=== PATIENT | male | born 1985 | race Caucasian/White ===

== ENCOUNTER 2019-04-02 02:12 | Emergency (ER) | payer OTHER, SELFPAY ==
[2019-04-02 02:16] VITALS: BP 129/84; PULSE 84; RESP 16; TEMP 36.6; O2SAT 99; BMI 30.8
--- NOTE | 2019-04-02 02:22 | DI.RAD.S_ITS ---
PROCEDURE: XR RIBS LT 2V INDICATIONS: sharp pains to L side ribs TECHNIQUE: 2 views of the left ribs were acquired. COMPARISON: None. FINDINGS: Surgical changes and devices: None. Bones and chest wall: No fractures or dislocations. No suspicious bony lesions. Overlying soft tissues appear unremarkable. Lungs and pleura: The visualized lung appears clear. No pleural effusions or pneumothorax are visible. IMPRESSION: No visible fractures or underlying pulmonary pathology. Dictated by: Skylar Del Valle M.D. on 04/02/2019 at 8:22 Approved by: Skylar Del Valle M.D. on 04/02/2019 at 8:24
[2019-04-02] MEDS: IBUPROFEN 400 MG TABLET 800 MG PO (02:26)
[2019-04-02] MEDS: HYDROCODONE/ACET 5/325 PREPACK 1 BOTTLE MISC (03:27)
[2019-04-02] MEDS: CYCLOBENZAPRINE 10 MG PREPACK 1 BOTTLE MISC (03:27)
[2019-04-02 03:49] VITALS: BP 127/77; PULSE 85; RESP 16; O2SAT 97
--- NOTE | 2019-04-02 06:49 | ED_ITS ---
HPI - Chest Pain General Chief Complaint: Chest Pain Stated Complaint: LEFT RIB PAIN Time Seen by Provider: 04/02/19 02:58 Source: patient Mode of arrival: ambulatory Limitations: no limitations History of Present Illness HPI narrative: 33-year-old male smoker otherwise healthy presents with a chief complaint of left posterior rib pain. 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 He has sharp and stabbing pain with motion and improvement with rest. He denies any cough or shortness of breath. MD complaint: chest pain Duration: constant Onset: during rest Pain location: left chest Severity: moderate Quality: sharp and ripping Pain radiation: none Relieving factors: rest Treatments prior to arrival chest pain: none Related Data Previous Rx's Medication Instructions Recorded cyclobenzaprine 10 mg PO TID PRN #14 tab 04/02/19 hydrocodone-acetaminophen 1 tab PO Q4-6H PRN #10 tab 04/02/19 ketorolac 10 mg PO Q6H PRN #14 tab 04/02/19 Allergies Allergy/AdvReac Type Severity Reaction Status Date / Time amoxicillin Allergy Hives Verified 04/02/19 02:21 Penicillins Allergy Verified 04/02/19 02:21 Review of Systems Constitutional Denies chills, Denies fever(s), Denies lethargy and Denies weakness Eyes Denies change in vision, Denies eye discharge, Denies irritation and Denies loss of vision ENT Ears, Nose, Mouth, and Throat: Denies change in voice, Denies neck pain and Denies sore throat Cardiovascular Reports chest pain, Denies irregular heart rhythm, Denies lightheadedness, Denies palpitations, Denies dyspnea, Denies dyspnea on exertion and Denies orthopnea Respiratory Denies cough, Denies dyspnea, Denies dyspnea on exertion and Denies wheezing Gastrointestinal Gastrointestinal: Denies abdominal pain, Denies change in bowel habits, Denies diarrhea, Denies nausea and Denies vomiting Genitourinary Denies hematuria, Denies flank pain, Denies urinary incontinence and Denies urinary urgency Musculoskeletal Denies neck pain Integumentary/Breasts Denies pruritus, Denies erythema, Denies rash and Denies wounds Neurologic Denies confusion, Denies loss of vision and Denies weakness Psychiatric Denies anxiety, Denies confusion, Denies depression, Denies homicidal ideation and Denies suicidal ideation Endocrine Denies palpitations Hematologic/Lymphatic Denies easy bruising Allergic/Immunologic Denies wheezing PFSH Social History Smoking Status: Current every day smoker Social History Smoking Status: Current every day smoker Exam Narrative Exam Narrative: GENERAL: 33-year-old male, obviously uncomfortable HEAD: Atraumatic. Normocephalic. No temporal or scalp tenderness. EYES: Pupils equal round and reactive. Extraocular motions intact. No scleral icterus. No injection or drainage. ENT: Nose without bleeding, purulent drainage or septal hematoma. Throat without erythema, tonsillar hypertrophy or exudate. Uvula midline. Airway patent. NECK: Trachea midline. No JVD or lymphadenopathy. Supple, nontender, no meningeal signs. CARDIOVASCULAR: Regular rate and rhythm without murmurs, gallops, or rubs. severe tenderness to palpation of left lateral ribs RESPIRATORY: Clear to auscultation. Breath sounds equal bilaterally. No wheezes, rales, or rhonchi. GASTROINTESTINAL: Abdomen soft, non-tender, nondistended. No hepato- splenomegaly, or palpable masses. No guarding. EXTREMITIES: No clubbing, cyanosis, or edema. No joint tenderness, effusion, or edema noted. BACK: Nontender without deformity or crepitance. No flank tenderness. NEURO: AOx3. SKIN: No rash or erythema. Initial Vital Signs Initial Vital Signs: Vital Signs Temperature 97.9 F 04/02/19 02:16 Pulse Rate 84 04/02/19 02:16 Respiratory Rate 16 04/02/19 02:16 Blood Pressure 129/84 04/02/19 02:16 Pulse Oximetry 99 04/02/19 02:16 Course Orders Ordered: ED Orders 04/02/19 02:22 XR ribs LT 2V Stat Discontinued Medications Hydrocodone Bitart/Acetaminophen (Vicodin Prepack) 1 bottle MISC SEEINSTR ONE Stop: 04/02/19 03:13 Last Admin: 04/02/19 03:27 Dose: 1 bottle Cyclobenzaprine HCl (Flexeril 10 Mg Prepack) 1 bottle MISC SEEINSTR ONE Stop: 04/02/19 03:13 Last Admin: 04/02/19 03:27 Dose: 1 bottle Ibuprofen (Advil) 800 mg PO NOW ONE Stop: 04/02/19 02:26 Last Admin: 04/02/19 02:26 Dose: 800 mg Ketorolac Tromethamine (Toradol) 60 mg IM NOW ONE Stop: 04/02/19 03:13 Last Admin: 04/02/19 03:48 Dose: Not Given Vital Signs - 8 hr 04/02/19 02:16 04/02/19 03:49 Temperature 97.9 F Pulse Rate 84 85 Respiratory Rate 16 16 Blood Pressure 129/84 127/77 Pulse Oximetry 99 97 MDM - Chest Pain Imaging Data Chest x-ray: My impression: No acute process Discharge Plan Departure Patient Disposition: Home Clinical Impression: Pain in rib Discharge Date/Time: 04/02/19 03:50 Interventions: ED Discharge Assessment Last Done: 04/02/19 03:49 Activity Restrictions/Additional Instructions: *You have been diagnosed with [left lateral rib pain with spasm of intercostals] *What to do: *Take medications as directed *Follow up with your primary care provider in 2-3 days, call for an appointment. Let them know you were seen in the Emergency Department and that we ask that you be seen in follow up *Return to ER if you should have any new, worsening or concerning symptoms Prescriptions: New cyclobenzaprine 10 mg tablet 10 mg PO TID PRN (Reason: muscle spasm) Qty: 14 RF: 0 hydrocodone-acetaminophen 5-325 mg tablet 1 tab PO Q4-6H PRN (Reason: pain) Qty: 10 RF: 0 ketorolac 10 mg tablet 10 mg PO Q6H PRN (Reason: pain) Qty: 14 RF: 0 Stand Alone Forms: Work Release Note
== END 2019-04-02 03:50 | disposition home or self-care (01) ==
PROVIDERS: Emergency Provider Emergency Medicine
DX: R07.81 Pleurodynia (principal); R07.9 Chest pain, unspecified
CPT/HCPCS: 71100; 99282; 99283

== ENCOUNTER → 2022-09-15 09:03 | Outpatient (CLI) | payer OTHER, SELFPAY ==
[2022-09-15 10:32] LABS: Add Manual Diff / Slide Review NO; Basophils Absolute Auto 100 /uL (0-100); Basophils Percent Auto 0.8 % (0-2); Eosinophils Absolute Auto 400 /uL (0-450); Eosinophils Percent Auto 4.6 % (2-4); Hematocrit 47.8 % (41-53); Hemoglobin 16.2 g/dL (13.5-17.5); Lymphocytes Absolute Auto 2200 /uL (1100-4500); Lymphocytes Percent Auto 27.3 % (25-40); Mean Corpuscular HGB Conc 33.9 % (30-36); Mean Corpuscular Volume 91.4 fL (80-100); Monocytes Absolute Auto 500 /uL (0-900); Monocytes Percent Auto 6.6 % (3-14); Neutrophils Absolute Auto 4900 /uL (1500-7000); Neutrophils Percent Auto 60.7 % (50-75); Platelet Count 252 X10^3/uL (150-400); Red Blood Cell Count 5.23 X10^6/uL (4.5-5.9); Red Cell Distribution Width 12.9 % (11.6-14.8); White Blood Cell Count 8.1 X10^3/uL (4.5-11.0)
[2022-09-15 10:48] LABS: Hemoglobin A1C% w Est Avg Glu 7.3 % (4.0-6.0)
[2022-09-15 11:47] LABS: Alanine Aminotransferase 59 IU/L (<50); Albumin 4.3 g/dL (3.5-5.0); Albumin Globulin Ratio 1.4 (1.0-2.8); Alkaline Phosphatase 80 U/L (38-126); Aspartate Aminotransferase 34 IU/L (17-59); BUN Creatinine Ratio 14.1 (6-22); Bilirubin Total 0.6 mg/dL (0.2-1.3); Blood Urea Nitrogen 10 mg/dL (9-20); Carbon Dioxide 27 mmol/L (22-32); Chloride 101 mmol/L (98-107); Cholesterol 166 mg/dL (140-199); Estimated Glomerular Filt Rate > 60 mL/min (>60); Glucose 174 mg/dL (70-100); HDL Cholesterol 30 mg/dL (40-60); HEMOLYSIS < 15 (0-50); LDL Cholesterol Calculated 87 mg/dL (<100); Potassium 4.3 mmol/L (3.4-5.1); Sodium 140 mmol/L (137-145); Total Protein 7.3 g/dL (6.3-8.2); Triglycerides 247 mg/dL (35-150)
[2022-09-15 12:08] LABS: TSH w/ Reflex to FT4 1.13 uIU/mL (0.47-4.68)
[2022-09-25 09:11] LABS: Percent Free Testosterone 3.05 % (1.50-4.20); Testosterone Free 9.88 ng/dL (5.00-21.00)
== END ==
PROVIDERS: PCP Family Medicine; Referring Provider Family Medicine; Visit Provider Family Medicine
DX: Z00.00 Encounter for general adult medical examination without abnormal findings (principal); F32.A Depression, unspecified; R53.83 Other fatigue
CPT/HCPCS: 36415; 80053; 80061; 83036; 84402; 84403; 84443; 85025

== ENCOUNTER → 2023-01-04 07:24 | Outpatient (CLI) | payer OTHER, SELFPAY ==
[2023-01-04 08:32] LABS: Hemoglobin A1C% w Est Avg Glu 6.2 % (4.0-6.0)
[2023-01-04 09:19] LABS: Testosterone 281 ng/dL (132-813)
== END ==
PROVIDERS: PCP Family Medicine; Referring Provider Family Medicine; Visit Provider Family Medicine
DX: E11.9 Type 2 diabetes mellitus without complications (principal); E66.01 Morbid (severe) obesity due to excess calories; F32.A Depression, unspecified; R53.83 Other fatigue
CPT/HCPCS: 36415; 83036; 84403

== ENCOUNTER → 2023-10-19 15:08 | Outpatient (CLI) | payer OTHER, SELFPAY ==
[2023-10-19 15:55] LABS: Hemoglobin A1C% w Est Avg Glu 5.9 % (4.0-6.0)
== END ==
PROVIDERS: PCP Family Medicine; Referring Provider Family Medicine; Visit Provider Family Medicine
DX: E11.9 Type 2 diabetes mellitus without complications (principal); R79.89 Other specified abnormal findings of blood chemistry
CPT/HCPCS: 36415; 83036